=== PATIENT | female | born 1975 | race Two or more races ===

== ENCOUNTER → 2021-02-28 | Outpatient (CLI) | payer OTHER | END | disposition home or self-care (01) | LOC: RAD 13:13 | PROVIDERS: ATTEND Physical Medicine & Rehabilitation | DX: M41.86 Other forms of scoliosis, lumbar region (principal); M54.59 Other low back pain ==

== ENCOUNTER 2021-06-08 09:07 | Outpatient (CLI) | payer OTHER | END 2021-06-08 09:18 | disposition home or self-care (01) | LOC: SONOGRAMA 09:07 | PROVIDERS: ATTEND Physical Medicine & Rehabilitation | DX: M25.521 Pain in right elbow (principal) ==

== ENCOUNTER 2021-09-08 08:24 | Day surgery (SDC) | payer OTHER ==
[~2021-09-08] VITALS: Ht 154.9 cm; Wt 48.1 kg
[~2021-09-08 08:24] MED LIST: SYNTHROID112 MCG PO
== END 2021-09-08 14:45 | disposition home or self-care (01) ==
LOC: CIR.AMB 08:24
PROVIDERS: ATTEND Orthopaedic Surgery
DX: M67.932 Unspecified disorder of synovium and tendon, left forearm (principal); M24.822 Other specific joint derangements of left elbow, not elsewhere classified; M77.12 Lateral epicondylitis, left elbow; Z85.850 Personal history of malignant neoplasm of thyroid

== ENCOUNTER 2023-05-02 10:28 | Emergency (ER) | payer OTHER ==
[~2023-05-02] VITALS: Ht 154.9 cm; Wt 54.4 kg
[~2023-05-02 10:28] MED LIST changes: +CELEBREX200MG PO; +METHOCARBAMOL500 MG PO
[2023-05-02] MEDS ORDERED: CRESTOR5 MG PO (10:43)
[2023-05-02] MEDS ORDERED: NASAL MIST126 ML (10:43)
[2023-05-02 12:46] LABS: HEMATOCRIT 37.6 % (36.0-45.00); HEMOGLOBIN 12.6 g/dL (12.0-15.00); MEAN CELL VOLUME 93.2 fL (80.00-100.00); MEAN CORPUSCULAR HEMOGLOBIN 31.1 pg (27.00-32.0); MEAN CORPUSCULAR HGB CONC 33.4 g/dl (32.0-36.0); PLATELET COUNT 249 K/uL (150-450); RED BLOOD COUNT 4.04 M/uL (4.00-6.00); RED CELL DISTRIBUTION WIDTH 14.4 % (11.5-14.5)
[2023-05-02 13:18] LABS: CALCIUM 9.6 mg/dL (8.5-10.1); CREATININE SERUM 0.92 mg/dL (0.55-1.02); GFR 65.15; POTASSIUM 4.22 mEq/L (3.5-5.1)
== END 2023-05-02 15:19 | disposition home or self-care (01) ==
LOC: ER 10:28
PROVIDERS: General Practice
DX: R42 Dizziness and giddiness (principal)

== ENCOUNTER 2023-11-26 10:49 | Outpatient (CLI) | payer OTHER ==
[~2023-11-26 10:49] MED LIST changes: +CELEBREX100 MG PO; +CRESTOR5 MG PO; +NASAL MIST126 ML
== END 2023-11-26 10:59 | disposition home or self-care (01) ==
LOC: RAD 10:49
PROVIDERS: ATTEND Physical Medicine & Rehabilitation
DX: M05.9 Rheumatoid arthritis with rheumatoid factor, unspecified (principal)